=== PATIENT | male | born 1945 | race Caucasian/White ===

== ENCOUNTER 2016-07-14 08:59 | Outpatient (CLI) | payer OTHER ==
[~2016-07-14 08:59] MED LIST: ASPIRIN ADULT L81 M1 PO; DILT-XR180 MG PO; FOLBEE PO; LEXAPRO10 MG PO; LIPITOR10 MG PO; NORCO1 TA1 PO; PRILOSEC20 MG
--- NOTE | 2016-07-14 11:14 | DIAGNOSTIC IMAGING REPORT ---
PROCEDURE: XR HIP BILATERAL INDICATION: HIP PAIN TECHNIQUE: AP view of the pelvis and hips with lateral view of each hip. COMPARISON: None. FINDINGS: RIGHT HIP: Normal mineralization. No fracture. Normal bony alignment. Subtle aspherical morphology of the right femoral head. Moderate lateral superior acetabular spur formation and mild superior acetabular sclerosis. No unusual adjacent calcifications. LEFT HIP: Normal mineralization. No fracture. Normal bony alignment. Slightly aspherical femoral head morphology. Large lateral superior acetabular spur formation. Minor acetabular sclerosis. No unusual adjacent calcifications. PELVIS: Normal mineralization. Pelvic rings are intact. No fractures. Asymmetric joint space loss and sclerosis in the left sacroiliac joint, likely accentuated by slight patient rotation. Pubic symphysis appears normal. There are surgical clips scattered overlying the pelvis. Benign implant device present. Mild degeneration at the L5-S1 level in the lower lumbar spine. Bowel gas pattern and soft tissues are unremarkable. IMPRESSION: 1. 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 2. Probable asymmetric degeneration at the left sacroiliac joint. Correlate clinically.
--- NOTE | 2016-07-14 11:22 | DIAGNOSTIC IMAGING REPORT ---
PROCEDURE: XR LUMBAR SPINE 2 OR 3 VIEWS INDICATION: HIP PAIN TECHNIQUE: Three views of the lumbar spine COMPARISON: None. FINDINGS: Five lumbar-type vertebral bodies are present. Normal vertebral body height without fracture. Trace retrolisthesis L4-5. Mild disc height loss L4-5. Moderate endplate sclerosis and spurring in the lower thoracic spine and at L1. Moderate facet hypertrophy and sclerosis at L5-S1 and to a lesser extent L4-5. Moderate calcific atherosclerosis of the abdominal aorta. Surgical clips scattered throughout the abdomen and pelvis. Mild asymmetric joint space loss caudally in the left sacroiliac joint. IMPRESSION: 1. Mild degenerative changes, most extensive at the L4-5 level. 2. Mild asymmetric left SI joint space loss.
== END 2016-07-14 23:00 ==
LOC: XR SRH 08:59
DX: M25.552 Pain in left hip (principal); M25.551 Pain in right hip; M51.36 Other intervertebral disc degeneration, lumbar region